=== PATIENT | male | born 1995 | race Caucasian/White ===

== ENCOUNTER 2020-04-02 03:56 | Emergency (ER) | payer OTHER ==
[~2020-04-02] VITALS: Ht 170.2 cm; Wt 79.4 kg
[~2020-04-02 03:56] MED LIST: Naprosyn500 MG PO; Norco 5-325 Ta1 EACH PO; TRAZ50 PO
[2020-04-02] MEDS ORDERED: TRAM50 PO (06:19)
[2020-04-02] MEDS ORDERED: AMOCLA875 PO (06:19)
== END 2020-04-02 06:30 | disposition home or self-care (01) ==
LOC: ER 03:56
DX: K05.10 Chronic gingivitis, plaque induced (principal); F17.200 Nicotine dependence, unspecified, uncomplicated; Z79.899 Other long term (current) drug therapy
CPT/HCPCS: 99282

== ENCOUNTER 2023-06-26 15:14 | Emergency (ER) | payer OTHER ==
[~2023-06-26] VITALS: Ht 167.6 cm; Wt 79.4 kg
[~2023-06-26 15:14] MED LIST changes: +AMOCLA875 PO; +TRAM50 PO
[2023-06-26 15:32] VITALS: BP 138/87
== END 2023-06-26 16:40 | disposition home or self-care (01) ==
LOC: ER 15:14
DX: S51.811A Laceration without foreign body of right forearm, initial encounter (principal); X99.1XXA Assault by knife, initial encounter; F17.200 Nicotine dependence, unspecified, uncomplicated; Z79.899 Other long term (current) drug therapy
CPT/HCPCS: 12002; 99282-25

== ENCOUNTER 2023-08-15 09:09 | Emergency (ER) | payer OTHER ==
[~2023-08-15] VITALS: Ht 167.6 cm; Wt 83.9 kg
[2023-08-15] MEDS ORDERED: AMOCLA875 PO (09:38)
[2023-08-15 09:56] VITALS: BP 130/79
== END 2023-08-15 09:58 | disposition home or self-care (01) ==
LOC: ER 09:09
DX: K04.7 Periapical abscess without sinus (principal); F17.200 Nicotine dependence, unspecified, uncomplicated
CPT/HCPCS: 99282; A9270

== ENCOUNTER 2023-08-23 03:37 | Emergency (ER) | payer OTHER ==
[~2023-08-23] VITALS: Ht 170.2 cm; Wt 72.6 kg
[2023-08-23 03:45] VITALS: BP 166/84
[2023-08-23] MEDS ORDERED: Cleocin HCl300 MG PO (03:58)
== END 2023-08-23 04:08 | disposition home or self-care (01) ==
LOC: ER 03:37
DX: K04.7 Periapical abscess without sinus (principal); L03.211 Cellulitis of face; F17.200 Nicotine dependence, unspecified, uncomplicated
CPT/HCPCS: 96372; 99282-25; A9270; J1885

== ENCOUNTER 2023-08-24 23:26 | Emergency (ER) | payer OTHER ==
[~2023-08-24] VITALS: Ht 162.6 cm; Wt 81.7 kg
[~2023-08-24 23:26] MED LIST changes: +Cleocin HCl300 MG PO
[2023-08-24 23:46] VITALS: BP 134/69
== END 2023-08-25 00:23 | disposition home or self-care (01) ==
LOC: ER 23:26
DX: K04.7 Periapical abscess without sinus (principal); K02.9 Dental caries, unspecified; F17.200 Nicotine dependence, unspecified, uncomplicated
CPT/HCPCS: 41800; 96372-59; 99282; A9270; J1885

== ENCOUNTER 2025-05-25 16:14 | Emergency (ER) | payer OTHER ==
[~2025-05-25] VITALS: Ht 160 cm; Wt 72.6 kg
[2025-05-25 16:21] VITALS: BP 145/85
== END 2025-05-25 16:31 | disposition home or self-care (01) ==
LOC: ER 16:14
DX: S01.01XA Laceration without foreign body of scalp, initial encounter (principal); F17.200 Nicotine dependence, unspecified, uncomplicated; W22.09XA Striking against other stationary object, initial encounter
CPT/HCPCS: 12011; 99282-25

== ENCOUNTER 2025-09-18 22:52 | Emergency (ER) | payer OTHER ==
[~2025-09-18] VITALS: Ht 167.6 cm; Wt 64.9 kg
[2025-09-18] MEDS ORDERED: CYCL10 PO (23:02)
[2025-09-18] MEDS ORDERED: IBU600 MG PO (23:02)
[2025-09-18] MEDS ORDERED: Ketorolac Tromethamine 30mg Vial IM ONE (23:05)
[2025-09-18 23:20] VITALS: BP 121/71
== END 2025-09-18 23:25 | disposition home or self-care (01) ==
LOC: ER 22:52
DX: M54.50 Low back pain, unspecified (principal); G89.29 Other chronic pain; F17.200 Nicotine dependence, unspecified, uncomplicated; Z79.899 Other long term (current) drug therapy
CPT/HCPCS: 96372; 99283-25; J1885